=== PATIENT | male | born 1970 | race Two or more races ===

== ENCOUNTER 2016-06-18 13:34 | Emergency (ER) | payer OTHER ==
[~2016-06-18] VITALS: Ht 162.6 cm; Wt 85.7 kg
[2016-06-18 13:43] VITALS: BP 156/89
== END 2016-06-18 18:27 | disposition left against medical advice (07) ==
LOC: ER 13:52
DX: R07.9 Chest pain, unspecified (principal); Z53.21 Procedure and treatment not carried out due to patient leaving prior to being seen by health care provider; R20.0 Anesthesia of skin
CPT/HCPCS: 70450; 93005